=== PATIENT | male | born 1940 | race Caucasian/White ===

== ENCOUNTER 2021-10-05 17:24 | Day surgery (SDC) | payer MEDICARE ==
[~2021-10-05 17:24] MED LIST: Cyclopentolate 1% Opth Drop 2 ML BOT ONE; Dexmedetomidine 200 MCG/2 ML VIAL ONE; Phenylephrine 2.5% Ophth Soln 5 ML BOT ONE; fentaNYL Citrate/PF 100 MCG/2 ML SYRINGE ONE
[2021-10-05] MEDS ORDERED: Fluorouracil 100 MG, Enoxaparin Sodium 25 MG, EPINEPHrine 0.3 MG in Ophthalmic Irrigati... IRR SCH (17:30)
[2021-10-05] MEDS ORDERED: PROPOFOL 200 MG/20 ML VIAL ONE (18:39)
[2021-10-05] MEDS ORDERED: Maxitrol 0.1% Opth Oint 3.5 GM TUBE ONE (18:39)
[2021-10-05] MEDS ORDERED: CEFAZOLIN 1 GM VIAL ONE (18:39)
[2021-10-05] MEDS ORDERED: Lidocaine 4% PF 5 ML AMP ONE (18:39)
[2021-10-05] MEDS ORDERED: Lidocaine 1% PF 5 ML VIAL ONE (18:39)
[2021-10-05] MEDS ORDERED: Triamcinolone 40 MG/ML VIAL ONE (18:39)
[2021-10-05] MEDS ORDERED: Bupivacaine 0.75% 10 ML VIAL ONE (18:39)
== END 2021-10-05 20:53 | disposition home or self-care (01) ==
LOC: SDC/OP 17:24 → EDSTATUS 17:28 → SDC/OP 20:53
PROVIDERS: ATTEND Ophthalmology Retina Specialist
PROC: 08T53ZZ Resection of Left Vitreous, Percutaneous Approach (ICD-10-PCS; principal; 2021-10-05)
DX: H33.012 Retinal detachment with single break, left eye (principal); Z79.899 Other long term (current) drug therapy; Z88.0 Allergy status to penicillin; Z20.822 Contact with and (suspected) exposure to COVID-19
CPT/HCPCS: 67025; 87811; J0171; J0690; J1650; J2704; J3301; J3490; J9190